=== PATIENT | male | born 1975 ===

== ENCOUNTER 2020-02-25 11:06 | Emergency (ER) | payer OTHER ==
[~2020-02-25] VITALS: Ht 175.3 cm; Wt 200.0 kg
[2020-02-25] MEDS ORDERED: ASPIRIN 81 MG TABLET CHEW PO ONE (12:30)
[2020-02-25] MEDS ORDERED: ASPIRIN 81 MG TABLET CHEW ONE (12:30)
[2020-02-25 12:35] LABS: BASOPHILS % (AUTO) 1 % (0-1); EOSINOPHILS % (AUTO) 2 % (1-7); LYMPHOCYTES % (AUTO) 35 % (22-44); MEAN CORPUSCULAR HEMOGLOBIN 29.5 pg (27.5-34.5); MEAN CORPUSCULAR HGB CONC 33.6 g/dL (33.2-36.2); MONOCYTES % (AUTO) 12 % (2-9); NEUTROPHILS % (AUTO) 50 % (42-75); PLATELET COUNT 256 x10^3/uL (130-400); RED CELL DISTRIBUTION WIDTH 14.4 % (9.4-14.8)
--- NOTE | 2020-02-25 12:35 | NUR ---
PT IN BED, RESTRAINTS PER CORRECTIONS, VSS, NO DISTRESS
[2020-02-25 12:41] LABS: MD NO
[2020-02-25 12:46] LABS: ALBUMIN 3.5 g/dL (3.4-5.0); ANION GAP 8 mmol/L (5-15); CALCIUM 8.6 mg/dL (8.5-10.1); CHLORIDE 109 mmol/L (98-107)
[2020-02-25 12:50] LABS: TROPONIN I < 0.015 ng/mL (0.000-0.045)
--- NOTE | 2020-02-25 13:50 | NUR ---
PT IN BED NO DISTRESS
[2020-02-25 15:37] LABS: TROPONIN I < 0.015 ng/mL (0.000-0.045)
--- NOTE | 2020-02-25 16:23 | NUR ---
Task RN: Patient/[employer] given discharge instructions and they have confirmed that they understand the instructions. Patient ambulatory with steady gait accompanied by LUCHO'hanna
[2020-02-25 16:24] VITALS: BP 123/88
== END 2020-02-25 16:26 | disposition home or self-care (01) ==
LOC: ED 11:09
DX: R07.2 Precordial pain (principal); I10 Essential (primary) hypertension; E11.9 Type 2 diabetes mellitus without complications; E78.5 Hyperlipidemia, unspecified; Z87.891 Personal history of nicotine dependence
CPT/HCPCS: 36415; 71045; 80048; 82040; 84484; 85025; 93005; 99285

== ENCOUNTER 2020-04-05 09:03 | Emergency (ER) | payer OTHER ==
[~2020-04-05] VITALS: Ht 175.3 cm; Wt 95.5 kg
[2020-04-05] MEDS ORDERED: ONDANSETRON 2MG/ML, 2ML ONE (09:20)
[2020-04-05] MEDS ORDERED: MORPHINE SULFATE 4 MG/ML, 1ML ONE ×2 (09:20→10:01)
[2020-04-05] MEDS: MORPHINE SULFATE 4 MG/ML, 1ML IVPush PRN ×2 (09:21→10:15)
[2020-04-05] MEDS ORDERED: NITROGLYCERIN SINGLE TAB 0.4 MG SL ONE (09:25)
[2020-04-05] MEDS: NITROGLYCERIN SINGLE TAB 0.4 MG SL PRN ×2 (09:26→09:39)
[2020-04-05] MEDS ORDERED: ONDANSETRON 2MG/ML, 2ML IVPush ONE (09:30)
[2020-04-05] MEDS ORDERED: SODIUM CHLORIDE FLUSH 10ML SYR IVF ONE (09:30)
[2020-04-05 09:38] LABS: BASOPHILS % (AUTO) 1 % (0-1); EOSINOPHILS % (AUTO) 1 % (1-7); LYMPHOCYTES % (AUTO) 33 % (22-44); MEAN CORPUSCULAR HEMOGLOBIN 29.9 pg (27.5-34.5); MEAN PLATELET VOLUME 7.8 fL (7.4-10.4); MONOCYTES % (AUTO) 10 % (2-9); NEUTROPHILS % (AUTO) 54 % (42-75); PLATELET COUNT 223 x10^3/uL (130-400); RED BLOOD COUNT 5.06 x10^6/uL (4.38-5.82); RED CELL DISTRIBUTION WIDTH 14.7 % (9.4-14.8)
[2020-04-05 09:47] LABS: ALANINE AMINOTRANSFERASE 41 U/L (12-78); ALBUMIN 3.8 g/dL (3.4-5.0); ANION GAP 6 mmol/L (5-15); CALCIUM 9.3 mg/dL (8.5-10.1); CHLORIDE 108 mmol/L (98-107); CREATININE 1.15 mg/dL (0.7-1.3)
[2020-04-05 09:51] LABS: ALKALINE PHOSPHATASE 66 U/L (45-117); BILIRUBIN,TOTAL 0.3 mg/dL (0.2-1.0); TOTAL PROTEIN 7.9 g/dL (6.4-8.2); TROPONIN I < 0.015 ng/mL (0.000-0.045)
[2020-04-05 09:59] LABS: MD NO
[2020-04-05 10:00] LABS: D-DIMER < 0.19 ug/mlFEU (0.00-0.52); INTERNATIONAL NORMALIZED RATIO 1.75 (0.93-1.1); PROTHROMBIN TIME 18.4 Seconds (9.6-11.5)
[2020-04-05] MEDS ORDERED: KETOROLAC 30 MG/1 ML ONE (12:28)
[2020-04-05] MEDS ORDERED: HYDROmorphone 1 MG/ML, 1ML INJ ONE ×2 (12:28→13:25)
[2020-04-05] MEDS: HYDROmorphone 2 MG/ML, 1ML IVPush PRN ×2 (12:30→13:29)
[2020-04-05] MEDS ORDERED: KETOROLAC 30 MG/1 ML IVPush ONE (12:30)
--- NOTE | 2020-04-05 12:52 | NUR ---
PT HAD DRANK MULTIPLE BOTTLES OF WATER AND IS UNABLE TO PROVIDE UA. PROVIDER UPDATED.
[2020-04-05 12:53] VITALS: BP 116/75
== END 2020-04-05 13:58 | disposition home or self-care (01) ==
LOC: ED 11:58
DX: R07.89 Other chest pain (principal); R94.31 Abnormal electrocardiogram [ECG] [EKG]; F17.210 Nicotine dependence, cigarettes, uncomplicated; I10 Essential (primary) hypertension; E11.9 Type 2 diabetes mellitus without complications
CPT/HCPCS: 36415; 71045; 74176; 80053; 83690; 84484; 85025; 85379; 85610; 93005; 96374; 96375; 96376; 99285; 99406; J1170; J1885; J2270; J2405